=== PATIENT | female | born 1975 | race Two or more races ===

== ENCOUNTER 2019-06-29 05:00 | Inpatient (IN) | payer SELFPAY ==
[2019-06-29] VITALS (8 sets, daily range): BP systolic 97–115; BP diastolic 53–67; Ht 160 cm; Wt 89.1 kg
[~2019-06-29] VITALS: Ht 160 cm; Wt 89.1 kg
--- NOTE | ~2019-06-29 | OP ---
PATIENT NAME: LESLYE HEATON MEDICAL RECORD: [id number] :76 LOCATION:[facility].[id number] ADMISSION DATE:06/29/19 SURGEON: ANAID NGO DO DATE OF OPERATION: 06/29/2019 PREOPERATIVE DIAGNOSES: Scheduled repeat ; multiparity, desire for permanent sterilization. POSTOPERATIVE DIAGNOSES: Scheduled repeat ; multiparity, desire for permanent sterilization, intra-abdominal adhesions. PRIMARY SURGEON: Anaid Ngo MD ERP PM SURGEON: Dr. Cabral ANESTHESIA: [place] CRNA. PROCEDURE: Repeat low transverse section via Pfannenstiel incision. FINDINGS: Male infant, born at 8:03 a.m., weight 6 pounds 9.4 ounces, Apgars 8 and 9. Uterus adhesed to anterior abdominal wall, unable to exteriorize the uterus or visualize tubes and ovaries. SPECIMENS: Placenta and cord. ESTIMATED BLOOD LOSS: 800 mL. IV FLUIDS: 2800 cc. URINE OUTPUT: 300 cc clear urine. COMPLICATIONS: Unable to perform tubal ligation due to inability to exteriorize the uterus. CONDITION: Stable. PROCEDURE IN DETAIL: The risks, benefits, alternatives, and indications of the procedure were discussed with the patient. She voiced understanding of the procedure and signed the consent. She was taken to the OR where spinal anesthesia was administered and found to be adequate. She was placed in the dorsal supine position with a leftward tilt. She was prepped and draped in the normal sterile fashion. A Pfannenstiel skin incision was made with a scalpel and carried down to the underlying layer of the fascia with the Bovie. The fascia was incised in the midline and extended laterally. The inferior aspect of the fascial incision was grasped with Isela clamps and the rectus muscle was dissected off sharply. Attention was then turned to the superior aspect of the fascial incision. The rectus muscle was dissected off in a similar fashion. The rectus muscle was grasped with 2 Allises and down to the level of the peritoneum with the scalpel. The peritoneum was identified and noted to be free of adherent bowel and entered bluntly. The peritoneum was further with a combination of blunt and sharp dissection. The bladder blade was inserted and an incision was created in the lower uterine segment with a scalpel and the incision was extended with cephalad caudad traction. The 's head was brought to the incision. Nuchal cord times 1 was noted and reduced over the head. The infant was delivered without difficulty. Mouth and OPERATIVE REPORT [id number] HEATON,LESLYE nose were suctioned. Cord was clamped and cut and the was handed off to awaiting pediatricians. The placenta was manually removed. The uterus was attempted to be exteriorized; however, due to multiple intra-abdominal adhesions, the uterus was unable to be exteriorized. Moist laparotomy sponges was used to assure complete removal of placenta membranes. The hysterotomy was closed intraabdominally with 0 Vicryl locked running suture with good hemostasis noted. The rectus muscle was closed with 2-0 Monocryl in a running fashion with good hemostasis. The subcutaneous fat was closed with 2-0 plain in a running fashion with good hemostasis and the skin was closed with 3-0 Monocryl in a subcuticular fashion with Dermabond, covering a good hemostasis. All needle, lap, sponge, and instrument counts were correct times 2. The patient tolerated the procedure well and she was taken to the recovery room in stable condition. TRANSINT:[id number] Voice Confirmation ID: [id number] DOCUMENT ID: [id number] ANAID NGO DO CC: [id number] DICTATION DATE: 06/29/1948 CRUSHER OPERATOR: 06/29/1944 ADM IN [place] [id number] [place] [id number]
[2019-06-29 06:32] LABS: UDS - AMPHET NEGATIVE QUAL (NEGATIVE); UDS - BARB NEGATIVE QUAL (NEGATIVE); UDS - BENZO NEGATIVE QUAL (NEGATIVE); UDS - COCAINE NEGATIVE QUAL (NEGATIVE); UDS - OPIATE NEGATIVE QUAL (NEGATIVE); UDS - PCP NEGATIVE QUAL (NEGATIVE); UDS - THC NEGATIVE QUAL (NEGATIVE)
[2019-06-29 07:06] LABS: HEMATOCRIT 37.5 % (36.0-48.0); HEMOGLOBIN 12.3 g/dL (12-16); MCH 28.2 pg (26.0-34.0); MCHC 32.8 g/dL (31.0-37.0); MEAN PLATELET VOLUME 12.4 fL (7.4-10.4); RBC 4.36 10x6/uL (4.00-5.40); RDW 13.7 % (11.5-14.5); WBC 7.8 10x3/uL (4.8-10.8)
--- NOTE | 2019-06-29 08:03 | NUR ---
BABY BOY AT 0803.
--- NOTE | 2019-06-29 09:25 | NUR ---
PT RECEIEVED FROM OR VIA BED A&A IN STABLE CONIDTION. PT W/ NO C/O AT THIS TIME. IV PLACED ON PUMP SEE EMAR FOR MEDS. CLEMENTS DRAINING TO GRAVITY DARK LEE URINE. SCD'S PLACED ON PT. PT'S AT BEDSIDE W/ PT.
--- NOTE | 2019-06-29 10:00 | NUR ---
pt a&a w/ in room, pt infant. fundus firm at u midline and small amount of bleeding. pt w/ no c/o at this time. pt in stable conidtion.
--- NOTE | 2019-06-29 10:15 | NUR ---
pt sitting up in bed a&a with family in room. pt w/ no c/o at this time. pericare given. fundus firm at u midline bleeding small.
--- NOTE | 2019-06-29 10:30 | NUR ---
PT REMAINS IN STABLE CONDITION W/ NO S/S OF DISTRESS. FAMILY REMAINS IN ROOM W/ PT. PT STATES SHE HAS NO PAIN AT THIS TIME.
--- NOTE | 2019-06-29 11:00 | NUR ---
PT REMAINS IN STABLE CONDITION W/ NO S/S OF DISTRESS. PT STATES SHE HAS NO PAIN. PERICARE GIVEN & PAD CHANGED. PT VERBALIZED & DEMONSTRATED I/S. PT'S FAMILY REMAINS IN ROOM W/ PT.
--- NOTE | 2019-06-29 12:09 | NUR ---
PT VISITING WITH FOB, C/O INC PAIN, ADM MORPHINE PER MD ORDERS FOR PAIN, SEE EMAR, PT DENIES FURTHER NEEDS, YEHUDA CHRISTINA, RN TO ROOM TO GO OVER NSY PAPER WORK WITH PT
--- NOTE | 2019-06-29 13:12 | NUR ---
PT AT THIS TIME, DENIES NEEDS OR PAIN, FOB AT BEDSIDE, LUNCH TRAY REMOVED
--- NOTE | 2019-06-29 14:22 | NUR ---
PT VISITING WITH FAMILY AND FRIENDS, FEMALE FAMILY MEMBER HOLDING AT THIS TIME, PT RATES INC PAIN 12/05, WILL ADM PAIN MED AND TORADOL WHEN DUE, PT VERBALIZES UNDERSTANDING, EMPTIED 350 MLS OF DARK YELLOW URINE FROM CLEMENTS CHAMBER TO CLEMENTS BAG, PT DENIES NEEDS AT THIS TIME
--- NOTE | 2019-06-29 15:09 | NUR ---
PT WATCHING TV, FOB AND OTHER CHILDREN AT BEDSIDE, SCANT VAG BLEEDING NOTED WITH NO CLOTS, FRESH ICE PACK TO ABD, PT RATES INC PAIN 12/05, ADM TORADOL SIVP PER MD ORDERS, SEE EMAR, SCD'S CONTINUE ON AND WORKING PROPERLY, PT DENIES FURTHER NEEDS, TRASH REMOVED
--- NOTE | 2019-06-29 16:03 | NUR ---
PT VISITING WITH FAMILY AND FRIENDS, FEMALE FAMILY MEMBER HOLDING INFANT, VS OBTAINED, I&O'S COLLECTED, PT RATES INC PAIN 10/05, INFORMED PT THAT I WILL COME BACK WHEN FAMILY LEAVES TO DO BETHANIE CARE, PT VERBALIZES UNDERSTANDING, DENIES NEEDS AT THIS TIME
--- NOTE | 2019-06-29 16:48 | NUR ---
OSWALDO BECERRA RN FROM [facility] INFORMED ME THAT DR NGO HAD CALLED AND GIVEN HER ORDERS, SEE ORDERS
--- NOTE | 2019-06-29 17:34 | NUR ---
PT VISITING WITH FAMILY AND FRIENDS, FAMILY MEMBER HOLDING , SCANT VAG BLEEDING NOTED WITH NO CLOTS, BETHANIE PAD CHANGED, PT RATES INC PAIN 10/05, DENIES NEED FOR PAIN MED AT THIS TIME, PT INST TO USE CALL LIGHT WHEN NEEDING IT, PT VERBALIZES UNDERSTANDING, DENIES NEEDS AT THIS TIME
--- NOTE | 2019-06-29 18:15 | NUR ---
PT AWAKE, VISITING WITH FAMILY AND FRIENDS, I&O'S COLLECTED, PT DENIES NEEDS AT THIS TIME
--- NOTE | 2019-06-29 19:10 | NUR ---
BEDSIDE REPORT RECEIVED FROM MAIRA PALAFOX RN. PT RESTING IN BED. NO DISTRESS NOTED. FAMILY ANF FRIENDS AT BEDSIDE. PT REQUESTING PAIN MEDICATION. NO OTHER REQUEST MADE. BED IN LOW POSITION. SR UP X2. CALL LIGHT WITHIN PTS REACH.
--- NOTE | 2019-06-29 19:10 | NUR ---
SHIFT REPORT TO SANTIAGO MCFARLAND RN
--- NOTE | 2019-06-29 19:39 | NUR ---
PT RESTING IN BED. NO DISTRESS NOTED. VSS. MORPHINE 4MG SIVP GIVEN FOR C/O ABD CRAMPING. WATER PITCHR FILLED. APPLE JUICE PROVIDED. INSTRUCTED PT TO NOTIFY NURSE IF MEDICATION NOT EFFECTIVE OR WITH ANY OTHER PROBLEMSN, NEEDS, OR CONCERNS. VERBALIZED UNDERSTANDING. BED IN LOW POSITION. SR UP X2. CALL LIGHT WITHIN PTS REACH.
--- NOTE | 2019-06-29 20:15 | NUR ---
PT RESTING IN BED BABY. PT REPORTS THAT HER PAIN IS NOW 4/10. NO REQUEST MADE. REQUESTED FOR PT TO CALL NURSE WHEN SHE IS FINISHED SO HER ASSESSMENT CAN BE DONE, FC DC'D AND IV SL'D. VERBALIZED UNDERSTANDING. BED IN LOW POSITION. SR UP X2. CALL LIGHT WITHIN PTS REACH.
--- NOTE | 2019-06-29 20:50 | NUR ---
PT RESTING IN BED. ASSESSMENT COMPLETE PER FLOWSHEET. BBS CLEAR. LOW TRANSVERSE INCISION COVERED WITH DRESSING C/D/I. FUNDUS FIRM AT UMBILICUS. SMALL AMOUNT OF LOCHIA NOTED ON PERIPAD. HYPOACTIVE BS X4 QUADRANTS. SCDS ON AND WORKING PROPERLY. FC DC'D PER MD ORDER WITH 1300ML OF CONCENTRATED YELLOW URINE NOTED IN CLEMENTS BAG. IV TO R WRIST SL'D. SL TO LEFT HAND. NO REDNESS OR TENDERNESS NOTED TO EITHER SITE. PERICARE DONE. CLEAN PAD AND PANTIES PLACED. PT INSTRUCTED ON VOID CHECKS AND TO CALL NURSE FOR ASSISTANCE WHEN GETTING UP TO BATHROOM. POC DISCUSSED INCLUDING PAIN MANAGEMENT, VOID CHECKS, AND AMBULATION. QUESTIONS ANSWERED. PT INSTRUCTED TO NOTIFY NURSE WITH ANY PROBLEMS, NEEDS, OR CONCERNS. VERBALIZED UNDERSTANDING. BED IN LOW POSITION. SR UP X2. CALL LIGHT WITHIN PTS REACH. INFANT IN OPEN CRIB AT PT'S BEDSIDE. SPOUSE AT BEDSIDE.
--- NOTE | 2019-06-29 22:20 | NUR ---
ASSISTED PT UP TO BATHROOM FOR FIRST VOID SINCE FC DC'D. PT VOIDED 750ML OF BLOOD TINGED URINE IN SPECIPAN. PT INSTRUCTED ON PERICARE. PT THEN ASSISTED BACK TO BED. TOLERATED WELL. NO REQUEST MADE. INSTRUCTED PT TO NOTIFY NURSE WITH ANY PROBLEMS, NEEDS, OR CONCERNS. VERBALIZED UNDERSTANDING. BED IN LOW POSITION. SR UP X2. CALL LIGHT WITHIN PTS REACH.
--- NOTE | 2019-06-29 23:50 | NUR ---
PT RESING IN BED. PT ASSISTED UP TO BATHROOM. PT VOIDED 400ML OF BLOOD TINGED UNRINE. PT ASSISTED BACK TO BED. FUNDUS FIRM AT UMBILICUS. NO REQUEST MADE. INSTRUCTED PT TO NOTIFY NURSE WITH ANY PROBLEMS, NEEDS, OR CONCERNS. VERBALIZED UNDERSTANDING. BED IN LOW POSITION. SR UP X2. CALL LIGHT WITHIN PTS REACH.
--- NOTE | 2019-06-30 01:49 | NUR ---
PT ASSISTED UP TO BATHROOM. PT VOIDED 400ML OF BLOOD TINGED URINE IN SPECIPAN. PT ASSISTED BACK TO BED. PERCOCET 10 X1 TABLET GIVEN FOR C/O ABD CRAMPING. WATER PITCHER FILLED. APPLE JUICE PROVIDED. NO OTHER REQUEST MADE. INSTRUCTED PT TO NOTIFY NURSE IF MEDICATION NOT EFFECTIVE OR WITH ANY OTHER PROBLEMS, NEEDS, OR CONCERNS. VERBALIZED UNDERSTANDING. BED IN LOW POSITION. SR UP X2. CALL LIGHT WITHIN PTS REACH.
--- NOTE | 2019-06-30 03:02 | NUR ---
PT RESTING IN BED WITH EYES CLOSED. INFANT IN OPEN CRIB AT PTS BEDSIDE. S/O RESTING IN CHAIR. NO DISTRESS NOTED. BED IN LOW POSITION. SR UP X2. CALL LIGHT WITHIN PTS REACH.
[2019-06-30 03:18] LABS: BASOPHILS 0.2 % (0-2); EOSINOPHILS 1.5 % (0-7); HEMOGLOBIN 11.1 g/dL (12-16); IMMATURE GRANULOCYTES 0.2 % (0-5); MCH 28.3 pg (26.0-34.0); MCHC 32.6 g/dL (31.0-37.0); MCV 86.7 fL (80.0-100.0); MONOCYTES 3.4 % (2-11); NEUTROPHILS 79.7 % (40-80); PLATELET COUNT 213 10x3/uL (130-400); RBC 3.92 10x6/uL (4.00-5.40); RDW 13.9 % (11.5-14.5); WBC 8.8 10x3/uL (4.8-10.8)
[2019-06-30 03:45] VITALS: BP 108/60
--- NOTE | 2019-06-30 03:45 | NUR ---
PT RESTING IN BED HOLDING . PT DENIES ANY COMPLAINTS. FUNDUS FIRM AT UMBILICUS. FRESH ICE PACK PLACED TO ABD INCISION. NO REQUEST MADE. INSTRUCTED PT TO NOTIFY NURSE WITH ANY PROBLEMS, NEEDS, OR CONCERNS. VERBALIZED UNDERSTANDING. BED IN LOW POSITION. SR UP X2. CALL LIGHT WITHIN PTS REACH.
[2019-06-30] MEDS ORDERED: PRENATAL VITAMIN PO (06:41)
--- NOTE | 2019-06-30 07:45 | NUR ---
IN TO SEE PATIENT. RESTING IN BED ON RIGHT SIDE. ASSESSMENT PER FLOWSHEET. VITAL SIGNS TAKEN. SALINE LOCKS IN LEFT HAND AND RIGHT WRIST. NO REDNESS OR SWELLING NOTED. SCD'S IN PLACE AND FUNCTIONING. PAIN LEVEL 5-6. FUNDUS FIRM BELOW THE UMBILICUS. SMALL AMOUNT LOCHIA. DRESSING CLEAN, DRY AND INTACT OVER BIKINI LINE INCISION. AT BEDSIDE. INSTRUCTED PATIENT REGARDING INCENTIVE SPIROMETER WITH RETURN DEMONSTRATION PERFORMED BY PATIENT. INSTRUCTED PATIENT TO USE SPIROMETER 6-7 TIMES PER HOUR TAKING 4-5 DEEP BREATHS WITH EACH USE. STATES UNDERSTANDING. BOWEL SOUNDS PRESENT, BUT PATIET STATES SHE IS NOT PASSING FLATUS. ENCOURAGED TO AMBULATE TODAY.
[2019-06-30 08:10] LABS: RAPID PLASMA REAGIN Non Reactive (Non Reactive)
[2019-06-30 08:45] VITALS: BP 122/72
--- NOTE | 2019-06-30 08:51 | NUR ---
Amrita Aiken 06/30/19 LE@ 8:19 S: Patient doesn't speak Maori and her translates conversation. States his says is going ok. Her nipples due hurt sometimes when she latches infant on the left breast. She doesn't think she is making enough milk for right now. Denies any other concerns. Will ask for help with latching during next feeding. O: Patient sitting up in bed eating breakfast, in nursery, and FOB at bedside. Praised for . Asked how can I help with ? Asked to see patient nipples. Patient nipple on the left and right side doesn't show signs of trauma nor redness. Encouraged patient to make sure infant is latched correctly for every feeding. Explained how to verify is latched correct and positions. Explained breastmilk composition. With infant first several days of life infant only needs small amounts of colostrum for every feeding but needs to eat more often. When compared to formula, Infant is able to go longer in between feeding because receives more per feeding. It is normal to be concern if is getting enough. Supply and demand, where there is a demand a supply will follow. As long as infant is placed to the breast for feedings your body will automatically adjust to needs. Provided patient with Lanolin cream and explained how to use. Fixing latch will help with sore nipples. It is normal for your nipples to be sensitive but it shouldn't hurt when . For infant next feeding please let nursery staff know you need help making sure infant is latched correctly. A: Patient concerns she isn't making enough milk for . Expresses concern for pain when latching on left breast. P: Patient will ask for help with next feeding to verify is latched correctly. Guanaco Dunbar, CLC
--- NOTE | 2019-06-30 09:30 | NUR ---
UP TO SHOWER. SALINE LOCKS COVERED WITH GLOVES AND TAPED TO KEEP DRY. LINENS CHANGED.
--- NOTE | 2019-06-30 10:30 | NUR ---
AMBULATING IN HALLWAYS WITH .
--- NOTE | 2019-06-30 11:28 | NUR ---
PT RESTING, AROUSES TO OPENING OF DOOR, DENIES NEEDS OR PAIN AT THIS TIME, IN OPEN CRIB CART AND FOB AT BEDSIDE
--- NOTE | 2019-06-30 12:00 | NUR ---
RESTING IN BED WITH EYES CLOSED. AT BEDSIDE ALSO SLEEPING. AT BEDSIDE IN OPEN CRIB SLEEPING.
--- NOTE | 2019-06-30 13:30 | NUR ---
IN TO SEE PATIENT. AND GROWN DAUGHTER AT BEDSIDE. OFFERED PAIN MEDICINE-PATIENT ACCEPTED.
--- NOTE | 2019-06-30 14:45 | NUR ---
PT UP IN ROOM, SWADDLING , PT RATES INC PAIN 10/05, DENIES NEEDS AT THIS TIME, FOB IN ROOM
--- NOTE | 2019-06-30 15:06 | NUR ---
PT UP WALKING AROUND ROOM AT THIS TIME, ADM GHANSHYAM PER MD ORDERS, SEE EMAR, PT DENIES NEEDS AT THIS TIME, IN OPEN CRIB CART AND FOB IN ROOM
--- NOTE | 2019-06-30 16:12 | NUR ---
PT RESTING IN BED, VISITING WITH FAMILY, RATES PAIN 3/10, DENIES NEEDS AT THIS TIME
[2019-06-30 17:30] VITALS: BP 126/89
--- NOTE | 2019-06-30 17:30 | NUR ---
PT. AMBULATING IN ROOM. NO FAMILY PRESENT AT THIS TIME. INFANT IN OPEN CRIB AT BEDSIDE. VITAL SIGNS TAKEN. NO COMPLAINTS OR NEEDS VOICED AT THIS TIME. PT. USING INCENTIVE SPIROMETER.
--- NOTE | 2019-06-30 18:30 | NUR ---
RESTING IN BED. FAMILY AND VISITORS AT BEDSIDE. PT REQUESTS PAIN MED.
--- NOTE | 2019-06-30 19:25 | NUR ---
BEDSIDE REPORT RECIVED FROM JANNA SIMMS RN. PT RESTING IN BED. FAMILY AND VISITORS IN ROOM. PT DENIES ANY COMPLAINTS OR NEEDS AT THIS TIME. PT INSTRUCTED TO NOTIFY NURSE WITH ANY PROBLEMS, NEEDS,OR CONCERNS. VERBALIZED UNDERSTANDING. S/O FEEDING INFANT AT THIS TIME. BED IN LOW POSITION. SR UP X2. CALL LIGHT WITHIN PTS REACH.
[2019-06-30 20:15] VITALS: BP 108/67
--- NOTE | 2019-06-30 20:15 | NUR ---
PT RESTING IN BED. S/O AT BEDSIDE HOLDING INFANT. ASSESSMENT COMPLETE PER FLOWSHEET. VSS. BBS CLEAR. ACTIVE BS X4 QUADRANTS. PT REPORTS THAT SHE IS PASSING FLATUS. LOW TRANSVERSE ABD INCISION C/D/I WITH DERMABOND. FUNDUS FIRM AT UMBILICUS. SMALL AMOUNT OF LOCHIA NOTED ON PERIPAD. NO EDEMA NOTED TO BLE. S/LS TO RIGHT WRIST AND LEFT HAND REMOVED PER PT REQUEST. PRESSURED APPLIED TO BOTH SITES WITH 2X2 AND COVERED WITH BAND-AIDS. WATER PITCHER FILLED. JUICE PROVIDED. INSTRUCTED PT TO NOTIFY NURSE WITH ANY PROBLEMS, NEEDS, OR CONCERNS. VERBALIZED UNDERSTANDING. BED IN LOW POSITION. SR UP X2. CALL LIGHT WITHIN PTS REACH.
--- NOTE | 2019-06-30 21:46 | NUR ---
PT RESTING IN BED. SCHEDULED MOTRIN GIVEN. PT DENIES ANY COMPLAINTS. INSTRUCTED PT TO NOTIFY NURSE WITH ANY PROBLEMS, NEEDS,OR CONCERNS. VERBALIZED UNDERSTANDING. BED IN LOW POSITION. SR UP X2. CALL LIGHT WITHIN PTS REACH.
--- NOTE | 2019-06-30 22:40 | NUR ---
PT RESTNG IN BED HOLDING . PT DENIES ANY COMPLAINTS OR NEEDS. INSTRUCTED PT TO NOTIFY NURSE WITH ANY PROBLEMS, NEED, OR CONCERNS. VERBALIZED UNDERSTANDING. BED IN LOW POSITION. SR UP X2. CALL LIGHT WITHIN PTS REACH.
[2019-07-01 00:35] VITALS: BP 119/65
--- NOTE | 2019-07-01 00:35 | NUR ---
PT RESTING IN BED HOLDING . S/O AT BED SIDE RESTING IN CHAIR. VSS.PT DENIES ANY COMPLAINTS OR NEEDS AT THIS TIME. INSTRUCTED PT TO NOTIFY NURSE WITH ANY PROBLEMS, NEEDS,OR CONCERNS. VERBALIZED UNDERSTANDING. BED IN LOW POSITION. SR UP X2. CALL LIGHT WITHIN PTS REACH.
--- NOTE | 2019-07-01 02:15 | NUR ---
PT RESTING IN BED. SPOUSE AT BEDSIDE. PT DENIES ANY COMPLAINTS OR NEEDS AT THIS TIME. INSTRUCTED PT TO NOTIFY NURSE WITH ANY PROBLEMS, NEEDS, OR CONCERNS, VERBALIZED UNDERSTANDING. SPOUSE HOLDING INFANT AT THIS TIME. NO DISTRESS NOTED. BED IN LOW POSITION. SR UP X2. CALL LIGHT WITHIN PTS REACH.
[2019-07-01 03:54] VITALS: BP 126/76
--- NOTE | 2019-07-01 03:54 | NUR ---
PT RESTING IN BED. VSS. PERCOCET 10 X1 TABLET GIVEN FOR C/O ABD/INC PAIN. SCHEDULED MOTRIN GIVEN. WATER PITCHER FILLED. APPLE JUICE PROVIDED. SPOUSE AT BEDSIDE. INFANT IN OPEN CRIB AT PTS BEDSIDE. NO DITRESS NOTED. PT INSTRUCTED TO NOTIFY NURSE IF MEDICATION NOT EFFECTIVE OR WITH ANY OTHER PROBLEMS, NEEDS, OR CONCERNS. VERBALIZED UNDERSTANDING. BED IN LOW POSITION. SR UP X2. CALL LIGHT WITHIN PTS REACH.
--- NOTE | 2019-07-01 04:33 | NUR ---
PT RESTING IN BED WITH EYES CLOSED AND LIGHTS OFF. NO DISTRESS NOTED. BED IN LOW POSITION. SR UP X2. CALL LIGHT WITHIN PTS REACH.
--- NOTE | 2019-07-01 06:22 | NUR ---
PT RESTING IN BED. S/O FEEDING INFANT. NO REQUEST MADE. INSTRUCTED PT TO NOTIFY NURSE WITH ANY PROBLEMS, NEEDS, OR CONCERNS. VERBAIZED UNDERSTANDING. BED IN LOW POSITION. SR UP X2. CALL LIGHT WITHIN PTS REACH.
--- NOTE | 2019-07-01 07:00 | NUR ---
DR NGO ON UNIT. VISITS WITH PT.
[2019-07-01 08:10] VITALS: BP 123/61
--- NOTE | 2019-07-01 08:10 | NUR ---
RECEIVED PT AMBULATORY IN ROOM. PT BACK TO BED FOR ASSESSMENT. VSS. HRRR WITHOUT AUDIBLE MURMUR. BBS CLEAR. BS X 4. ABDOMEN SOFT/NON-DISTENDED. STATES PASSING GAS. NO BM YET. ABDOMINAL INCISION WITH DERMABOND. NO DRAINAGE, REDNESS, OR SWELLING NOTED. NEG HOMANS' SIGN. PPP. NO EDEMA NOTED TO BLE. PT C/O ABDOMINAL/INCISIONAL PAIN OF "5" ON 0-10 PAIN SCALE. PT PROVIDED ICE WATER. DENIES NEEDS. SR UP X 2. CALL LIGHT IN REACH.
--- NOTE | 2019-07-01 08:16 | NUR ---
PERCOCET 10/325 AND MYLICON 80 MG CHEW TAB GIVEN PO ORDERED FOR PT C/O PAIN. PT INSTRUCTED ON MEDS. VERBALIZES UNDERSTANDING.
--- NOTE | 2019-07-01 09:23 | NUR ---
PT AMBULATORY IN ROOM. STATES PAIN MEDICATION RELIEVING PAIN. DENIES NEEDS OR C/O.
--- NOTE | 2019-07-01 10:30 | NUR ---
PT SITTING UP IN BED. VISITS WITH SO. DENIES C/O OR NEEDS.
--- NOTE | 2019-07-01 11:42 | NUR ---
PT C/O INCISIONAL PAIN OF "4" ON 0-10 PAIN SCALE. MOTRIN 600 MG GIVEN PO ORDERED.
--- NOTE | 2019-07-01 12:30 | NUR ---
PT SITTING UP IN BED. VISITS WITH FAMILY. DENIES C/O OR NEEDS.
[2019-07-01] MEDS ORDERED: PERCOCET 5-3251 TAB PO (13:07)
--- NOTE | 2019-07-01 14:30 | NUR ---
DISCHARGE INSTRUCTIONS GIVEN TO PT. PT VERBALIZES UNDERSTANDING OF ALL INSTRUCTIONS. COPIES GIVEN TO PT. PT GIVEN RX FOR PERCOCET.
--- NOTE | 2019-07-01 14:37 | NUR ---
PT C/O INCISIONAL PAIN OF "7" ON 0-10 PAIN SCALE. PERCOCET 10/325 GIVEN PO ORDERED. PT INSTRUCTED ON MED. VERBALIZES UNDERSTANDING.
--- NOTE | 2019-07-01 14:55 | NUR ---
PT READY FOR DISCHARGE. DISCHARGED IN STABLE CONDITION VIA WHEELCHAIR WITH TO PRIVATE VEHICLE. PT AND INFANT MAKEDA WELL.
== END 2019-07-01 14:55 | disposition home or self-care (01) | DRG 788 ==
LOC: D.LD 05:00 → D.WS 05:00 → D.LD 07:00 → D.WS 09:23
PROVIDERS: ADMIT Student in an Organized Health Care Education/Training Program; ATTEND Student in an Organized Health Care Education/Training Program
PROC: 10D00Z1 Extraction of Products of Conception, Low, Open Approach (ICD-10-PCS; principal; 2019-06-29 07:00)
DX: O34.211 Maternal care for low transverse scar from previous cesarean delivery (principal); Z3A.39 39 weeks gestation of pregnancy; Z37.0 Single live birth; O99.89 Other specified diseases and conditions complicating pregnancy, childbirth and the puerperium; N73.6 Female pelvic peritoneal adhesions (postinfective)

== ENCOUNTER 2020-09-19 08:00 | Outpatient (CLI) | payer MEDICAID ==
[2019-06-29 09:33] VITALS: BMI 34.8
[~2020-09-19 08:00] MED LIST: PERCOCET 5-3251 TAB PO; PRENATAL VITAMIN PO
== END 2020-09-19 08:01 | disposition home or self-care (01) ==
LOC: D.MAMMO 08:00
PROVIDERS: ATTEND Nurse Practitioner
DX: Z12.31 Encounter for screening mammogram for malignant neoplasm of breast (principal)